=== PATIENT | female | born 1960 | race Hispanic/Latino ===

== ENCOUNTER 2024-01-17 13:33 | Emergency (ER) | payer BC ==
[~2024-01-17] VITALS: Ht 157.5 cm; Wt 99.8 kg
[2024-01-17 14:17] LABS: BASOPHILS # (AUTO) 0.02 K/uL (0.00-0.20); BASOPHILS % (AUTO) 0.2 % (0.0-5.0); EOSINOPHILS # (AUTO) 0.06 K/uL (0.00-0.70); EOSINOPHILS % (AUTO) 0.6 % (0.0-8.0); HEMATOCRIT 42.1 % (36-48); IMMATURE GRANULOCYTE ABSOLUTE 0.05 K/uL (0-1); LYMPHOCYTES # (AUTO) 0.7 K/uL (1.0-4.8); LYMPHOCYTES % (AUTO) 7.3 % (21.0-51.0); MEAN CORPUSCULAR HEMOGLOBIN 29.3 pg (27.0-33.0); MEAN CORPUSCULAR HGB CONC 34.2 g/dL (32.0-36.0); MEAN CORPUSCULAR VOLUME 85.6 fL (79-99); MONOCYTES # (AUTO) 0.4 K/uL (0.1-1.0); MONOCYTES % (AUTO) 3.7 % (3.0-13.0); NEUTROPHILS # (AUTO) 8.9 K/uL (1.8-7.7); NEUTROPHILS % (AUTO) 87.7 % (40.0-77.0); PLATELET COUNT (AUTO) 202 K/uL (130-400); RED BLOOD CELL COUNT(AUTO) 4.92 MIL/uL (4.00-5.50); RED CELL DISTRIBUTION WIDTH 13.9 % (11.0-15.5); WHITE BLOOD COUNT (AUTO) 10.1 K/uL (4.8-10.8)
[2024-01-17 14:26] LABS: CREATININE 0.8 mg/dL (0.5-1.5); POTASSIUM 4.1 mmol/L (3.5-5.1)
[2024-01-17] MEDS: 0.9%NACL 1000ML 1,000 ML IV ONE ×2 (14:57→15:43)
[2024-01-17] MEDS: FAMOTIDINE 20MG VIAL IV ONE (14:57)
[2024-01-17 15:10] LABS: APPEARANCE,URINE CLEAR (CLEAR); BILIRUBIN,URINE NEGATIVE (NEGATIVE); COLOR,URINE YELLOW (YELLOW); GLUCOSE, URINE (UA) NEGATIVE (NEGATIVE); KETONES,URINE NEGATIVE (NEGATIVE); LEUKOCYTE ESTERASE ,URINE TRACE Leu/uL (NEGATIVE); NITRATE,URINE POSITIVE (NEGATIVE); OCCULT BLOOD,URINE NEGATIVE (NEGATIVE); PH,URINE 5.5 (5.0-8.0); PROTEIN,URINE NEGATIVE (NEGATIVE); UROBILINOGEN,URINE 0.2 mg/dL (0.2-1.0)
[2024-01-17 15:18] LABS: ADD UA MICROSCOPIC YES
[2024-01-17 15:24] LABS: BACTERIA,URINE RARE /HPF (None Seen); MUCUS,URINE RARE LPF (None Seen); SQUAMOUS EPITHELIAL CELL,UR FEW /HPF (0-2); YEAST,URINE BUDDING RARE /HPF (None Seen)
[2024-01-17] MEDS ORDERED: NITR100C PO (15:41)
[2024-01-17] MEDS ORDERED: ONDA4TAB10 PO (15:41)
[2024-01-17] MEDS: CEFTRIAXONE 1G VIAL IVPB ONE (15:43)
[2024-01-17 16:06] VITALS: BP 153/78; PULSE 93; RESP 18; O2SAT 98
[2024-01-17 16:06] LABS: INFLUENZA TYPE A Negative For Type A (NEGATIVE)
[2024-01-17 16:15] LABS: INFLUENZA TYPE B Positive For Type B (NEGATIVE)
[2024-01-17 16:39] LABS: SARS-CoV-2, RNA, NAAT NEGATIVE SARS CoV-2 (NEGATIVE)
[2024-01-17 16:44] LABS: RAPID GROUP A STREP positive (NEGATIVE)
[2024-01-17] MEDS: AMOXICILLIN 500 MG CAPSULE PO ONE (17:23)
[2024-01-17] MEDS: OSELTAMIVIR PHOSPHATE 75 MG CAP PO ONE (17:24)
[2024-01-17] MEDS ORDERED: OSEL75 PO (17:33)
[2024-01-17] MEDS ORDERED: AMOX500C2 PO (17:33)
== END 2024-01-17 17:28 | disposition home or self-care (01) ==
LOC: EDH 13:33
DX: N39.0 Urinary tract infection, site not specified (principal); J10.1 Influenza due to other identified influenza virus with other respiratory manifestations; K52.9 Noninfective gastroenteritis and colitis, unspecified; I10 Essential (primary) hypertension; E78.00 Pure hypercholesterolemia, unspecified; Z20.822 Contact with and (suspected) exposure to COVID-19; Z79.899 Other long term (current) drug therapy; Z90.49 Acquired absence of other specified parts of digestive tract; Z98.890 Other specified postprocedural states
CPT/HCPCS: 99284; 96365; 87635; 96366; 96361; 96375; 80048; 85025; 87088; 87880; 87804 ×2; 83605; 81001; 36415; J3490; J7030 ×2; J0696